=== PATIENT | female | born 1980 | race Caucasian/White ===

== ENCOUNTER → 2019-02-02 | Outpatient (CLI) | payer OTHER | LOC: BHSO 12:53 | DX: F33.1 Major depressive disorder, recurrent, moderate (principal) ==

== ENCOUNTER → 2019-02-20 | Outpatient (CLI) | payer OTHER | LOC: BHSO 08:47 | DX: F33.0 Major depressive disorder, recurrent, mild (principal) ==

== ENCOUNTER → 2019-02-27 | Outpatient (CLI) | payer OTHER | LOC: BHSO 08:53 | DX: F41.1 Generalized anxiety disorder (principal) ==

== ENCOUNTER → 2019-03-06 | Outpatient (CLI) | payer OTHER | LOC: BHSO 08:56 | DX: F33.0 Major depressive disorder, recurrent, mild (principal) ==

== ENCOUNTER → 2019-03-13 | Outpatient (CLI) | payer OTHER | LOC: BHSO 09:00 | DX: F33.1 Major depressive disorder, recurrent, moderate (principal) ==

== ENCOUNTER → 2019-03-22 | Outpatient (CLI) | payer OTHER | LOC: BHSO 15:43 | DX: F33.0 Major depressive disorder, recurrent, mild (principal) ==

== ENCOUNTER → 2019-04-10 | Outpatient (CLI) | payer OTHER | LOC: BHSO 09:05 | DX: F33.0 Major depressive disorder, recurrent, mild (principal) ==

== ENCOUNTER → 2019-05-04 | Outpatient (CLI) | payer OTHER | LOC: BHSO 07:57 | DX: F33.1 Major depressive disorder, recurrent, moderate (principal) ==

== ENCOUNTER → 2019-06-07 | Outpatient (CLI) | payer OTHER | LOC: BHSO 10:56 | DX: F33.1 Major depressive disorder, recurrent, moderate (principal) ==

== ENCOUNTER → 2019-07-18 | Outpatient (CLI) | payer OTHER | LOC: BHSO 09:00 | DX: F33.0 Major depressive disorder, recurrent, mild (principal) ==

== ENCOUNTER → 2019-08-06 | Outpatient (CLI) | payer OTHER | LOC: BHSO 11:00 | DX: F41.1 Generalized anxiety disorder (principal) ==

== ENCOUNTER → 2019-08-21 | Outpatient (CLI) | payer OTHER | LOC: BHSO 10:00 | DX: F33.1 Major depressive disorder, recurrent, moderate (principal) ==

== ENCOUNTER → 2019-09-04 | Outpatient (CLI) | payer OTHER | LOC: BHSO 09:50 | DX: F33.0 Major depressive disorder, recurrent, mild (principal) ==

== ENCOUNTER → 2019-09-18 | Outpatient (CLI) | payer OTHER | LOC: BHSO 09:52 | DX: F33.0 Major depressive disorder, recurrent, mild (principal) ==

== ENCOUNTER → 2023-01-11 | Outpatient (CLI) | payer OTHER ==
[~2023-01-11] MED LIST: CEPHALEXIN500 M1 PO; IBU800 M1 PO; IRON325 MG PO; NAPROSYN500 MG PO; NORCO 325 MG-51 TAB PO; PERCOCET 325 MG1 TA2 PO; PHENERGAN12.5 MG/SU RC; PRENATAL PO; PRILOSEC10 MG PO; ROBAXIN 50500 MG/TAB PO; ZOFRAN8 MG PO
== END ==
LOC: MC.RAD 09:29
DX: Z12.31 Encounter for screening mammogram for malignant neoplasm of breast (principal)